=== PATIENT | female | born 1975 | race Caucasian/White ===

== ENCOUNTER 2016-12-29 14:32 | Emergency (ER) | payer OTHER ==
[2016-12-29 14:36] VITALS: O2SAT 98
[2016-12-29] MEDS ORDERED: METOCLOPRAMIDE 10 MG/2 ML VIAL IVP ONE (14:45)
[2016-12-29] MEDS ORDERED: DEXAMETHASONE 10 MG/ML VIAL IVP ONE (14:45)
[2016-12-29] MEDS ORDERED: NS 1,000 ML IV ONE (14:51)
--- NOTE | 2016-12-29 14:51 | EDPHY ---
H & P Stated Complaint: HEADACHE SINCE LAST NIGHT Source: Patient, Family Exam Limitations: No limitations - Personal History LMP (Females 10-55): 8-14 Days Ago Current Tetanus Diphtheria and Acellular Pertussis (TDAP): Yes Tetanus Vaccine Date: < 10 YEARS - Medical/Surgical History Hx Asthma: No Hx Chronic Respiratory Disease: No Hx Diabetes: No Hx Cardiac Disease: No Hx Renal Disease: No Hx Cirrhosis: No Hx Alcoholism: No Hx HIV/AIDS: No Hx Splenectomy or Spleen Trauma: No Other PMH: medical none. surgery cholecystectomy. - Social History Smoking Status: Never smoked HPI/ROS: CHIEF COMPLAINT: Headache HISTORY OF PRESENT ILLNESS: Patient complains of generalized headache. This started last evening. It was mild to moderate and has steadily worsened. It is throughout her entire head. There is no neck pain or stiffness. No fever chills. No trauma or injury. Some nausea but no vomiting. There is photophobia. She does have history of migraines but this appears to be different to her. No any symptoms elsewhere. No other modifying factors. She took ibuprofen with no relief. No other associated complaints or modifying factors REVIEW OF SYSTEMS: Ten systems reviewed and are negative unless otherwise noted in the HPI PAST MEDICAL HISTORY: Migraine headaches PAST SURGICAL HISTORY: None SOCIAL HISTORY: Nonsmoker. Lives here with her family FAMILY HISTORY: Noncontributory EXAMINATION General Appearance: Alert, no distress, crying but consolable Head: normocephalic, atraumatic. No Fuchs sign. No raccoon eyes. No outward signs of trauma Eyes: Pupils equal and round, no conjunctival pallor or injection. No subconjunctival hemorrhage. EOMs intact ENT, Mouth: Mucous membranes moist. Airway patent Neck: Normal inspection, supple, non-tender. Painless range of motion all planes. No rigidity or meningismus. Respiratory: Lungs are clear to auscultation Cardiovascular: Regular rate and rhythm. No murmur. Pulses intact distally Gastrointestinal: Abdomen is soft and nontender Back: non-tender, no bony abnormalities Neurological: GCS 15. A&O, nonfocal, normal gait. Strength is symmetric in all 4 limbs. no pronator drift. No dysmetria. Skin: Warm and dry, no rash Extremities: Nontender, no pedal edema Psychiatric: Mood and affect normal DIFFERENTIAL DIAGNOSES: Including but not limited to migraine, atypical migraine, intracranial hemorrhage, subdural hematoma, subarachnoid hemorrhage, pseudotumor, intracranial mass MDM: 2:50 p.m. Generalized severe headache in a patient with history of migraines. She feels this is the. Vital signs are within normal limits. Neuro exam is normal. Ordered medications and CT scan of the head. No meningismus or nuchal rigidity. 4:00 p.m. Notified by radiologist Dr. Muñoz. There is no intracranial abnormality. There is maxillary and frontal sinusitis and dental disease. 4:10 p.m. I have re-evaluated the patient. She is feeling significantly better at this time. Still complains of a mild posterior headache but nearly resolved. Neck remains supple without rigidity. She does note that she has a family history of pseudotumor cerebri and expresses or concern for this. I will discuss with Dr. Stone 4:35 p.m. Have discussed the case with Dr. Stone. The we discussed the examination, CT findings and improvement of her symptoms. We are both in agreement that the patient be discharged home with treatment of the possibility of sinusitis and for headache. I will refer her to Neurology and ENT for definitive care. I do not feel that she warrants a lumbar puncture or MRI at this time. Both Dr. Stone and I agree on this and the patient is agreeable with this as well. She is discharged home stable conditions with prescriptions as documented. ED precautions discussed for worsening headache, fever, any neck pain or stiffness. She is comfortable with this plan and discharged home in stable condition. (Jacob Rodriguez) Constitutional: Initial Vital Signs Temperature (C) 97.9 F 12/29/16 14:33 Heart Rate 81 12/29/16 14:33 Respiratory Rate 20 12/29/16 14:33 Blood Pressure 150/94 H 12/29/16 14:33 O2 Sat (%) 98 12/29/16 14:33 O2 Delivery Mode Room Air Allergies/Adverse Reactions: No Known Allergies Allergy (Unverified 12/29/16 14:36) Home Medications: Medication Instructions Recorded Amoxicillin/Clavulanate Pot 875 mg PO BID #20 tab 12/29/16 [Augmentin 875 MG TAB (*)] Codeine/Butalbit/Acetamin/Caff 1 each PO Q6 PRN #12 capsule 12/29/16 [Fioricet-Cod 11-29-896-40 Cap] Pseudoephedrine HCl 30 mg PO Q6 PRN #21 tablet 12/29/16 Medical Decision Making ED Course/Re-evaluation: The patient was evaluated and managed by the physician assistant golf course superintendent. I have reviewed this chart and I agree with the findings and plan of care as documented , as indicated by my signature. I am the secondary supervising physician. ( Amparo Stone) - Data Points Laboratory Results: Laboratory Results 12/29/16 14:45 12/29/16 14:45 Medications Given: Discontinued Medications Dexamethasone (Decadron Injection) 10 mg IVP EDNOW ONE Stop: 12/29/16 14:46 Last Admin: 12/29/16 14:55 Dose: 10 mg Diphenhydramine HCl (Benadryl Injection) 25 mg IVP EDNOW ONE Stop: 12/29/16 14:46 Last Admin: 12/29/16 14:55 Dose: 25 mg Sodium Chloride (Ns) 1,000 mls @ 0 mls/hr IV EDNOW ONE; Wide Open PRN Reason: Protocol Stop: 12/29/16 14:52 Last Admin: 12/29/16 14:54 Dose: 1,000 mls Metoclopramide HCl (Reglan Injection) 10 mg IVP EDNOW ONE Stop: 12/29/16 14:46 Last Admin: 12/29/16 14:55 Dose: 10 mg Departure - Departure Disposition: Home, Routine, Self-Care Clinical Impression: Maxillary sinusitis, acute Qualifiers: Recurrence: non-recurrent Qualified Code(s): J01.00 - Acute maxillary sinusitis , unspecified Acute headache Qualifiers: Headache type: unspecified Intractability: not intractable Qualified Code(s): R51 - Headache Condition: Good Instructions: Sinusitis (ED), Acute Headache (ED) Additional Instructions: 1. medications as prescribed 2. Contact neurologist for outpatient follow up 3. Contact ENT for outpatient follow-up 4. ED precautions as discussed Referrals: Patient,NotPresent [Primary Care Provider] - As per Instructions Jerica Marcos MD [Medical Doctor] - As per Instructions Dg Patel MD [Medical Doctor] - As per Instructions George Chopra MD [Medical Doctor] - As per Instructions Stand Alone Forms: Work Excuse Prescriptions: Amoxicillin/Clavulanate Pot [Augmentin 875 MG TAB (*)] 875 mg PO BID #20 tab Codeine/Butalbit/Acetamin/Caff [Fioricet-Cod 66-13-361-40 Cap] 1 each PO Q6 PRN #12 capsule PRN Reason: Headache Pseudoephedrine HCl 30 mg PO Q6 PRN #21 tablet PRN Reason: Headache
[2016-12-29 14:57] LABS: % IMMATURE GRANULYOCYTES 0.3 % (0.0-1.1); ABSOLUTE IMMATURE GRANULOCYTES 0.03 10^3/uL (0.00-0.10); ADD DIFF? NO; ADD MORPH? NO; ADD SCAN? NO; ATYPICAL LYMPHOCYTE FLAG 10 (0-99); FRAGMENT RBC FLAG 0 (0-99); HEMATOCRIT 42.5 % (38.0-47.0); HEMOGLOBIN 14.5 g/dL (12.6-16.3); LEFT SHIFT FLG 0 (0-99); LIPEMIA HEMOLYSIS FLAG 90 (0-99); MEAN CELL HEMOGLOBIN 31.4 pg (27.9-34.1); MEAN CELL HEMOGLOBIN CONCENTR. 34.1 g/dL (32.4-36.7); MEAN PLATELET VOLUME 9.6 fL (8.7-11.7); PLATELET CLUMPS FLAG 0 (0-99); PLATELET COUNT 305 10^3/uL (150-400); RED BLOOD CELL COUNT 4.62 10^6/uL (4.18-5.33); RED CELL DISTRIBUTION WIDTH 12.6 % (11.5-15.2)
[2016-12-29 15:30] LABS: ANION GAP 14 mEq/L (8-16); C-REACTIVE PROTEIN < 5.0 mg/L (<10.0); CALCIUM 9.6 mg/dL (8.5-10.4); CARBON DIOXIDE 23 mEq/l (22-31); CHLORIDE 105 mEq/L (97-110); CREATININE 0.7 mg/dL (0.6-1.0); GLOMERULAR FILTRATION RATE > 60; GLUCOSE 125 mg/dL (70-100); POTASSIUM 3.7 mEq/L (3.5-5.2); SODIUM 142 mEq/L (134-144)
[2016-12-29 15:54] LABS: SEDIMENTATION RATE 8 MM/HR (0-20)
[2016-12-29 16:05] VITALS: BP 113/72; PULSE 66; RESP 16
[2016-12-29 16:06] VITALS: TEMP 97.5
== END 2016-12-29 16:51 | disposition home or self-care (01) ==
DX: J01.00 Acute maxillary sinusitis, unspecified (principal); E86.9 Volume depletion, unspecified
CPT/HCPCS: 96374; J1100; J1200; J2765